=== PATIENT | female | born 1980 ===

== ENCOUNTER 2023-11-30 09:14 | Outpatient (CLI) | payer OTHER, SELFPAY ==
--- NOTE | ~2023-11-30 | MR_ITS ---
EXAMINATION: MR knee LT wo con DATE: 11/30/2023 10:06 INDICATION: Medial meniscal tear TECHNIQUE: Magnetic resonance imaging (MRI) of the left knee was performed without intravenous contra st. Sequences included coronal PD-weighted FSE, coronal PD-weighted FS FSE, sagittal T2-weighted FSE , sagittal PD-weighted FS FSE and axial PD weighted fat saturated FSE. COMPARISON: None. FINDINGS: Medial compartment: Medial meniscus is normal. Articular cartilage is normal. Lateral compartment: Lateral meniscus is normal. Articular cartilage is normal. Patellofemoral compartment: Partial-thickness chondral ulceration with mild underlying cortical irregularity at the central aspec t of the medial trochlea. Remaining articular cartilage in the patellofemoral compartment is normal. Ligaments and tendons: Complete tear of the anterior cruciate ligament. The posterior cruciate ligament is normal. The proxi mal medial collateral ligament is markedly thickened with significant increased fluid signal consiste nt with high-grade partial or more likely complete tear. The fibular collateral ligament complex is n ormal. The extensor mechanism is normal. The visualized medial and lateral hamstring tendons as well as the iliotibial band are normal. Fluid: Moderate-sized left knee joint effusion. Small Etienne's cyst. Mild diffuse soft tissue edema at the po pliteal fossa and about the knee. No loose osteochondral bodies identified. Osseous/other: There is marrow edema without discrete fracture lines at the posterior sulcus of the lateral femoral condyle and along the posterior rims of the medial and lateral tibial plateaus consistent with bone c ontusions resulting from anterior tibial subluxation occurring in conjunction with the anterior cruci ate ligament tear. No fracture or pathologic marrow replacing process. IMPRESSION: 1. Likely complete tears of the anterior cruciate ligament proximal medial collateral ligament. 2. Bone contusions at the lateral sulcus of the lateral femoral condyle and at the posterior rim of t he medial and lateral tibial plateaus consistent with corresponding anterior tibial subluxation injur y. 3. 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 4. Likely reactive moderate sized left knee joint effusion and small Etienne's cyst. Reviewed, dictated and finalized at location B. IMPRESSION: 1. Likely complete tears of the anterior cruciate ligament proximal medial bita ateral ligament. 2. Bone contusions at the lateral sulcus of the lateral femoral condyle and at the posterior rim of the medial and lateral tibial plateaus consistent with cor responding anterior tibial subluxation injury. 3. 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 4. Likely reactive moderate sized left knee joint effusion and small Etienne's cy st.
== END 2023-11-30 09:15 ==
PROVIDERS: PCP Orthopaedic Surgery; Visit Provider Orthopaedic Surgery
DX: S83.242A Other tear of medial meniscus, current injury, left knee, initial encounter (principal); S83.412A Sprain of medial collateral ligament of left knee, initial encounter; X58.XXXA Exposure to other specified factors, initial encounter; M25.462 Effusion, left knee; M71.21 Synovial cyst of popliteal space [Baker], right knee
CPT/HCPCS: 73721